=== PATIENT | male | born 1940 | race Caucasian/White ===

== ENCOUNTER → 2016-06-12 | Outpatient (CLI) | payer BC ==
[~2016-06-12] MED LIST: ATOR-22 PO; CALC-20 PO; CETI10TA10 PO; FOLI-29 PO; LATA0.5S OPB; LSN25 PO; MOME100A INH; MULTCAP7 PO; PANT40TA PO; PANT40TA2 PO; PSYL55.43 PO; WARF-280 PO; instaflex PO
--- NOTE | 2016-06-12 14:52 | DIAGNOSTIC IMAGING REPORT ---
CHEST 2 VIEWS ROUTINE HISTORY: J44.9 Chronic obstructive pulmonary disease COMPARISON: Chest 10/02/2015. FINDINGS: Bibasilar linear densities suggesting atelectasis or scarring remains stable. There is a calcified granuloma within the left upper lobe. No pleural effusions. No pneumothorax. No new focal lung consolidations. No evidence for pulmonary edema. The heart is normal in size. IMPRESSION: No significant change compared to the prior study. No acute process. Bibasilar subsegmental atelectasis persists. Electronically signed by: Ramiro Alarcon M.D. 06/12/2016 2:51 PM
== END | disposition home or self-care (01) ==
LOC: C.RAD1850 14:29
PROVIDERS: ATTEND Internal Medicine Pulmonary Disease
DX: J44.9 Chronic obstructive pulmonary disease, unspecified (principal)

== ENCOUNTER → 2016-07-08 | Outpatient (CLI) | payer BC ==
[~2016-07-08] MED LIST changes: -PANT40TA2 PO; +PRT/40 PO
[2016-07-08 11:06] LABS: INR 2.6 (0.9-1.1); PROTHROMBIN TIME (PATIENT) 28.4 SECONDS (9.0-12.0)
== END | disposition home or self-care (01) ==
LOC: C.LAB1850 10:21
PROVIDERS: ATTEND Nurse Practitioner
DX: I26.99 Other pulmonary embolism without acute cor pulmonale (principal)

== ENCOUNTER → 2016-12-02 | Outpatient (CLI) | payer BC ==
[~2016-12-02] MED LIST changes: +PANT40TA2 PO; -PRT/40 PO
== END | disposition home or self-care (01) ==
LOC: C.LAB1850 12:42
PROVIDERS: ATTEND Nurse Practitioner
DX: J44.9 Chronic obstructive pulmonary disease, unspecified (principal)

== ENCOUNTER → 2016-12-20 | Outpatient (CLI) | payer BC ==
[~2016-12-20] MED LIST changes: -PANT40TA2 PO; +PRT/40 PO
[2016-12-20 12:33] LABS: INR 2.4 (0.9-1.1); PROTHROMBIN TIME (PATIENT) 26.7 SECONDS (9.0-12.0)
[2016-12-20 12:47] LABS: CHOLESTEROL/HDL RATIO 2.1
== END | disposition home or self-care (01) ==
LOC: C.LABPVFM 08:07
PROVIDERS: ATTEND Nurse Practitioner
DX: E78.00 Pure hypercholesterolemia, unspecified (principal)

== ENCOUNTER → 2017-04-22 | Outpatient (CLI) | payer BC ==
[~2017-04-22] MED LIST changes: +PANT40TA2 PO; -PRT/40 PO
--- NOTE | 2017-04-22 10:36 | DIAGNOSTIC IMAGING REPORT ---
CHEST 2 VIEWS ROUTINE HISTORY: 77 years-old Male MUSCLE SPASM acute muscle spasms of the right chest. History of prior pulmonary embolus. COMPARISON: Chest radiograph 06/12/2016 TECHNIQUE: PA and lateral views of the chest FINDINGS: Cardiomediastinal and hilar silhouettes are within normal limits. There is no pneumothorax, pleural effusion or focal airspace consolidation. Calcified granuloma of the left upper lobe redemonstrated. There are linear subsegmental bibasilar opacities suggesting atelectasis or scarring. Bones of the chest are grossly intact. Degenerative changes involve the shoulders and spine. IMPRESSION: No acute cardiopulmonary process. The above report was generated using voice recognition software. It may contain grammatical, syntax or spelling errors. Electronically signed by: Karel Haq M.D. 04/22/2017 10:34 AM Dictated Date/Time: 04/22/2017 10:33 AM
== END | disposition home or self-care (01) ==
LOC: C.LABPVFM 10:01
PROVIDERS: ATTEND Family Medicine Adult Medicine
DX: M62.838 Other muscle spasm (principal)

== ENCOUNTER → 2017-05-03 | Outpatient (CLI) | payer BC ==
[2017-05-03 12:56] LABS: BASO % 0.3 %; BASO ABS # 0.04 K/uL (0-0.2); COMPLETE YES; HEMATOCRIT 42.8 % (42-52); IG% 0.3 %; LYMPH % 11.7 %; LYMPH ABS # 1.46 K/uL (1.2-3.4); MEAN CELL VOLUME 94.7 fL (80-100); MEAN CORPUSCULAR HEMOGLOBIN 31.6 pg (25-34); MEAN CORPUSCULAR HGB CONC 33.4 g/dl (32-36); MEAN PLATELET VOLUME 10.3 fL (7.4-10.4); MONO % 9.5 %; NEUT % 75.2 %; PLATELET COUNT 190 K/uL (130-400); RED BLOOD COUNT 4.52 M/uL (4.7-6.1); WHITE BLOOD COUNT 12.48 K/uL (4.8-10.8)
[2017-05-03 12:59] LABS: BLOOD UREA NITROGEN 20 mg/dl (7-18); BUN/CREATININE RATIO 13.2 (10-20); CALCIUM 9.1 mg/dl (8.5-10.1); CARBON DIOXIDE 28 mmol/L (21-32); CREATININE 1.48 mg/dl (0.60-1.40); GLUCOSE 86 mg/dl (70-99)
[2017-05-03 13:00] LABS: URINE APPEARANCE CLEAR (CLEAR); URINE BILIRUBIN NEG (NEG); URINE COLOR YELLOW; URINE EPITHELIAL CELL AUTO 0-5 /lpf (0-5); URINE NITRITE NEG (NEG); URINE PH 6.5 (4.5-7.5); URINE SPECIFIC GRAVITY 1.016 (1.000-1.030); UROBILINOGEN NEG (NEG)
[2017-05-03 13:03] LABS: MANUAL MICROSCOPIC REQUIRED? NO; REVIEW REQ? NO
[2017-05-03 13:10] LABS: ESTIMATED AVERAGE GLUCOSE 120 mg/dl; HA1C FLAG Normal (Normal)
[2017-05-03 13:18] LABS: CREATININE RANDOM URINE 85.7 mg/dl
[2017-05-03 13:29] LABS: RATIO 15.9 mcg/mg (0-30.0)
[2017-05-03 13:44] LABS: CHLORIDE 103 mmol/L (98-107); POTASSIUM 3.8 mmol/L (3.5-5.1); SODIUM 138 mmol/L (136-145)
== END | disposition home or self-care (01) ==
LOC: C.LABPVFM 08:50
PROVIDERS: ATTEND Internal Medicine
DX: E78.00 Pure hypercholesterolemia, unspecified (principal); C61 Malignant neoplasm of prostate

== ENCOUNTER → 2017-05-30 | Outpatient (CLI) | payer BC | END | disposition home or self-care (01) | LOC: C.LABPVFM 09:51 | PROVIDERS: ATTEND Urology | DX: C61 Malignant neoplasm of prostate (principal) ==

== ENCOUNTER → 2017-08-08 | Outpatient (CLI) | payer BC | END | disposition home or self-care (01) | LOC: C.RC 16:36 | PROVIDERS: ATTEND Nurse Practitioner | DX: J44.9 Chronic obstructive pulmonary disease, unspecified (principal); R09.02 Hypoxemia ==

== ENCOUNTER → 2017-10-27 | Outpatient (CLI) | payer BC ==
[2017-10-27 14:34] LABS: BASO % 0.5 %; BASO ABS # 0.05 K/uL (0-0.2); EOS ABS # 0.41 K/uL (0-0.5); HEMATOCRIT 41.1 % (42-52); HEMOGLOBIN 13.9 g/dL (14.0-18.0); IG# 0.03 K/uL (0.00-0.02); LYMPH % 13.5 %; LYMPH ABS # 1.38 K/uL (1.2-3.4); MEAN CELL VOLUME 89.5 fL (80-100); MEAN CORPUSCULAR HEMOGLOBIN 30.3 pg (25-34); MEAN CORPUSCULAR HGB CONC 33.8 g/dl (32-36); MEAN PLATELET VOLUME 9.7 fL (7.4-10.4); MONO % 12.2 %; MONO ABS # 1.25 K/uL (0.11-0.59); NEUT % 69.5 %; NEUT ABS # 7.12 K/uL (1.4-6.5); PLATELET COUNT 226 K/uL (130-400); RED CELL DISTRIBUTION WIDTH CV 14.9 % (11.5-14.5); RED CELL DISTRIBUTION WIDTH SD 48.6 fL (36.4-46.3); WHITE BLOOD COUNT 10.24 K/uL (4.8-10.8)
[2017-10-27 15:00] LABS: ALBUMIN 3.5 gm/dl (3.4-5.0); BLOOD UREA NITROGEN 17 mg/dl (7-18); CALCIUM 9.2 mg/dl (8.5-10.1); CARBON DIOXIDE 26 mmol/L (21-32); CREATININE 1.48 mg/dl (0.60-1.40); GLUCOSE 90 mg/dl (70-99); PHOSPHORUS 2.4 mg/dl (2.5-4.9); POTASSIUM 4.2 mmol/L (3.5-5.1); SODIUM 138 mmol/L (136-145)
[2017-10-27 16:13] LABS: CREATININE RANDOM URINE 95.7 mg/dl
== END | disposition home or self-care (01) ==
LOC: C.LAB1850 13:39
PROVIDERS: ATTEND Internal Medicine
DX: R73.09 Other abnormal glucose (principal); I10 Essential (primary) hypertension

== ENCOUNTER 2024-10-19 05:34 | Inpatient (IN) ==
--- NOTE | 2024-09-29 10:10 | PAT Medication Instructions ---
Medication Instructions Date of Service September 29, 2024 Home Medications Medication Instructions Recorded albuterol sulfate 90 mcg/actuation 2 puff inhalation Q6H PRN 07/11/22 aerosol inhaler (Ventolin HFA) shortness of breath or wheezing #54 grams nebulizer accessories #1 ea 07/18/23 nebulizers #1 ea 07/18/23 ipratropium 0.5 mg-albuterol 3 mg 3 ml inhalation TID #810 mL 07/21/23 (2.5 mg base)/3 mL nebulization soln lisinopril 2.5 mg tablet 5 mg (2 x 2.5 mg) PO BID #400 tabs 09/16/23 clotrimazole 1 % topical cream 1 applic topical TID PRN rash #45 11/12/23 grams fluticasone 250 mcg-salmeterol 50 1 inh inhalation BID #3 Inhalers 01/20/24 mcg/dose blistr powdr for inhalation (Wixela Inhub) warfarin 2.5 mg tablet (Jantoven) See Rx Instructions .Route 03/01/24 .COMPLEX #270 tabs pantoprazole 40 mg tablet,delayed 40 mg PO QAM #90 tabs 05/04/24 release montelukast 10 mg tablet 10 mg PO PM #90 tabs 05/10/24 tamsulosin 0.4 mg capsule 0.4 mg PO PM #100 caps 07/27/24 atorvastatin 20 mg tablet 20 mg PO HS #90 tabs 08/09/24 gabapentin 100 mg capsule 100 mg PO HS #90 caps 09/06/24 Medication List: calcium 315 mg (as citrate)-vitamin D3 5 mcg (200 unit) tablet (Calcium Citrate + D) 1 tab PO QAM cyanocobalamin (vitamin B-12) 1,000 mcg tablet (Vitamin B-12) 1,000 mcg PO QAM [id number] 300 mcg-K 60 mcg-lycop 600 mcg-lutein 300 mcg tablet (Centrum Silver Ultra Men's) 1 tab PO QAM acetaminophen 500 mg tablet 1,000 mg PO Q8H PRN Pain albuterol sulfate 90 mcg/actuation aerosol inhaler (Ventolin HFA) 2 puff inhalation Q6H PRN shortness of breath or wheezing artificial tears ointment 1 applic ophthalmic (eye) DAILY PRN ipratropium 0.5 mg-albuterol 3 mg (2.5 mg base)/3 mL nebulization soln 3 ml inhalation TID lisinopril 2.5 mg tablet 5 mg (2 x 2.5 mg) PO BID clotrimazole 1 % topical cream 1 applic topical TID PRN rash latanoprostene bunod 0.024 % eye drops (Vyzulta) 1 drp ophthalmic (eye) QPM levocetirizine 5 mg tablet 5 mg PO QPM turmeric root extract 500 mg capsule 1,000 mg PO QAM fluticasone 250 mcg-salmeterol 50 mcg/dose blistr powdr for inhalation (Wixela Inhub) 1 inh inhalation BID metoprolol tartrate 25 mg tablet 12.5 mg PO BID tramadol 50 mg tablet 50 mg PO Q6H PRN Pain warfarin 2.5 mg tablet (Jantoven) See Rx Instructions .Route .COMPLEX pantoprazole 40 mg tablet,delayed release 40 mg PO QAM montelukast 10 mg tablet 10 mg PO PM tamsulosin 0.4 mg capsule 0.4 mg PO PM atorvastatin 20 mg tablet 20 mg PO HS gabapentin 100 mg capsule 100 mg PO HS MEDICATION INSTRUCTIONS: Continue as directed clotrimazole 1 % topical cream 1 applic topical TID PRN rash (do not use after bathing prior to surgery) latanoprostene bunod 0.024 % eye drops (Vyzulta) 1 drp ophthalmic (eye) QPM fluticasone 250 mcg-salmeterol 50 mcg/dose blistr powdr for inhalation (Wixela Inhub) 1 inh inhalation BID albuterol sulfate 90 mcg/actuation aerosol inhaler (Ventolin HFA) 2 puff inhalation Q6H PRN shortness of breath or wheezing (use if needed; BRING TO HOSPITAL) artificial tears ointment 1 applic ophthalmic (eye) DAILY PRN ipratropium 0.5 mg-albuterol 3 mg (2.5 mg base)/3 mL nebulization soln 3 ml inhalation TID ASK your prescriber and surgeon warfarin 2.5 mg tablet (Jantoven) See Rx Instructions .Route .COMPLEX STOP taking 2 weeks before surgery turmeric root extract 500 mg capsule 1,000 mg PO QAM DO NOT take the morning of surgery calcium 315 mg (as citrate)-vitamin D3 5 mcg (200 unit) tablet (Calcium Citrate + D) 1 tab PO QAM cyanocobalamin (vitamin B-12) 1,000 mcg tablet (Vitamin B-12) 1,000 mcg PO QAM [id number]-[id number] 300 mcg-K 60 mcg-lycop 600 mcg-lutein 300 mcg tablet (Centrum Silver Ultra Men's) 1 tab PO QAM lisinopril 2.5 mg tablet 5 mg (2 x 2.5 mg) PO BID Take morning of surgery With a small sip of water, OTHERWISE NOTHING TO EAT OR DRINK AFTER MIDNIGHT: acetaminophen 500 mg tablet 1,000 mg PO Q8H PRN Pain metoprolol tartrate 25 mg tablet 12.5 mg PO BID tramadol 50 mg tablet 50 mg PO Q6H PRN Pain pantoprazole 40 mg tablet,delayed release 40 mg PO QAM Take evening before surgery montelukast 10 mg tablet 10 mg PO PM tamsulosin 0.4 mg capsule 0.4 mg PO PM atorvastatin 20 mg tablet 20 mg PO HS gabapentin 100 mg capsule 100 mg PO HS levocetirizine 5 mg tablet 5 mg PO QPM acetaminophen 500 mg tablet 1,000 mg PO Q8H PRN Pain metoprolol tartrate 25 mg tablet 12.5 mg PO BID tramadol 50 mg tablet 50 mg PO Q6H PRN Pain lisinopril 2.5 mg tablet 5 mg (2 x 2.5 mg) PO BID Other Notes If you have any questions please call us at [phone] or [phone] or [phone] or [phone]
--- NOTE | 2024-10-06 12:03 | Anesthesiology Consultation ---
Date of Service October 06, 2024 Assessment & Plan (1) Encounter for pre-operative examination: Plan - awaiting updated echocardiogram. - check coags STAT am DOS. - Case discussed in detail with Dr. Michaels including severe pulmonary hypertension on 02/2024 echocardiogram and no planned updated testing. He advised echocardiogram will need updated to determine if patient is a candidate for surgery at [facility] or if tertiary care center would be needed. Patient and daughter made aware at PAT visit, they verbalized understanding and denied questions or concerns. Cardiology office made aware the day of patient's appointment, will also send optimization form. Surgeon's office made aware. - cardiology office visit 09/29/24: "...preoperative cardiovascular examination...atrial flutter with RVR s/p cardioversion in ER 02/15/2004 failed IV adenosine and IV diltiazem (2/2 hypotension). Moderate mitral regurgitation...severe pulmonary hypertension per echo 02/16/2024...CKD. Factor V Leiden with history of PE...repair of prior TKR...has not seen PCP for preop...denies palpitations, dizziness, near syncope, syncope, denies pain and shortness of breath...plan for diagnostic overnight polysomnogram...patient decided he doesn't want to follow through with that...PASP 80 mmHg...elective low risk ortho surgery...3.9% risk of MACE based on RCRI risk scoring. Severe pulmonary hypertension likely also increases risk however, he denies associated symptoms and is compensated on exam. No further cardiac testing recommended prior to proceeding...again discussed referral to EP for consideration of atrial flutter ablation...will discuss further with his daughter but may now consider after his knee surgery..." - Outpatient joint assessment: Patient is currently scheduled for inpatient pathway. If re-evaluated and patient/surgeon requests outpatient pathway, patient is not a candidate for outpatient joint program. Chart Review Chart Review: Pending: Refer to Additional Notes / Consult section and Patient seen in Pre Admission Testing Teaching & Discussion Pre-Anesthesia Teaching/Discussion Notes: Instructed NPO after midnight before surgery, except medications with 15 cc of water. Medication instructions provided according to the PAT guidelines. History Surgery Operation Date: 10/19/24 11:25 Proposed Procedures p Left Knee Open Polyethylene Exchange - Jason Sow MD Height/Weight Height: 5 ft 10 in Weight: 93.6 kg Allergies Allergy/AdvReac Type Severity Reaction Status Date / Time Iodinated Contrast Media Allergy Intermediate Rash Verified 09/29/24 08:31 latex Allergy Mild rash Verified 09/29/24 08:31 red dye Allergy Mild RASH,PURITI Verified 09/29/24 08:31 S codeine AdvReac Intermediate DIZZINESS Verified 09/29/24 08:31 oxycodone AdvReac Intermediate NAUSEA, Verified 09/29/24 08:31 LIGHTHEADED levaquin Allergy Intermediate jittery Uncoded 09/29/24 08:31 and confused Medications Home Medications Medication Instructions Recorded Confirmed Last Taken calcium 315 mg (as 1 tab PO QAM 07/13/18 09/29/24 01/24/22 08:00 citrate)-vitamin D3 5 mcg (200 unit) tablet (Calcium Citrate + D) cyanocobalamin (vitamin B-12) 1,000 mcg PO QAM 07/13/18 09/29/24 01/24/22 08:00 1,000 mcg tablet (Vitamin B-12) ttbrwtoc-ek-piell 300 mcg-K 60 1 tab PO QAM 07/13/18 09/29/24 01/24/22 12:00 mcg-lycop 600 mcg-lutein 300 mcg tablet (Centrum Silver Ultra Men's) acetaminophen 500 mg tablet 1,000 mg PO Q8H PRN Pain 05/14/19 09/29/24 Unknown albuterol sulfate 90 mcg/actuation 2 puff inhalation Q6H PRN 07/11/22 09/29/24 Unknown aerosol inhaler (Ventolin HFA) shortness of breath or wheezing #54 grams artificial tears ointment 1 applic ophthalmic (eye) DAILY 05/30/23 09/29/24 Un known PRN . nebulizer accessories #1 ea 07/18/23 09/03/24 Unknown nebulizers #1 ea 07/18/23 09/03/24 Unknown ipratropium 0.5 mg-albuterol 3 mg 3 ml inhalation TID #810 mL 07/21/23 09/29/24 Unknown (2.5 mg base)/3 mL nebulization soln lisinopril 2.5 mg tablet 5 mg (2 x 2.5 mg) PO BID #400 tabs 09/16/23 09/29/24 Unknown clotrimazole 1 % topical cream 1 applic topical TID PRN rash #45 11/12/23 09/29/24 Unknown grams latanoprostene bunod 0.024 % eye 1 drp ophthalmic (eye) QPM 11/12/23 09/29/24 Unknown drops (Vyzulta) levocetirizine 5 mg tablet 5 mg PO QPM 11/12/23 09/29/24 Unknown turmeric root extract 500 mg 1,000 mg PO QAM 11/12/23 09/29/24 Unknown capsule fluticasone 250 mcg-salmeterol 50 1 inh inhalation BID #3 Inhalers 01/20/24 09/29/24 Unknown mcg/dose blistr powdr for inhalation (Wixela Inhub) metoprolol tartrate 25 mg tablet 12.5 mg PO BID 02/18/24 09/29/24 Unknown tramadol 50 mg tablet 50 mg PO Q6H PRN Pain 02/18/24 09/29/24 Unknown warfarin 2.5 mg tablet (Jantoven) See Rx Instructions .Route 03/01/24 09/29/24 Unknown .COMPLEX #270 tabs pantoprazole 40 mg tablet,delayed 40 mg PO QAM #90 tabs 05/04/24 09/29/24 Unknown release montelukast 10 mg tablet 10 mg PO PM #90 tabs 05/10/24 09/29/24 Unknown tamsulosin 0.4 mg capsule 0.4 mg PO PM #100 caps 07/27/24 09/29/24 Unknown atorvastatin 20 mg tablet 20 mg PO HS #90 tabs 08/09/24 09/29/24 Unknown gabapentin 100 mg capsule 100 mg PO HS #90 caps 09/06/24 09/29/24 Unknown Past Medical History Medical History (Updated 10/06/24 @ 12:19 by Teresa Fulton PA-C) Arthritis Asthma rare rescue inhaler use Atrial flutter followed by Dr. Ramirez in [place] Chronic back pain Chronic kidney disease, unspecified Chronic obstructive pulmonary disease controlled, stable per pt; last albuterol inhaler use several months ago Environmental and seasonal allergies Factor 5 Leiden mutation, heterozygous GERD (gastroesophageal reflux disease) controlled, stable per pt Glaucoma Hearing deficit History of actinic keratosis History of anesthesia reaction awareness during right TKA History of cardioversion 02/2024>[facility] in [place] History of prostate cancer 2006--sx History of pulmonary embolism (~2012) Several clots, 2012 - on Warfarin Hx of migraines Hyperlipidemia Hypertension controlled, stable per pt On anticoagulant therapy Prediabetes Pulmonary hypertension severe on 02/2024 echo Rotator cuff tear, left shoulder pain>left Seborrheic keratosis Suspected sleep apnea per cardio records, patient did not pursue sleep study Patient denies h/o stroke, seizures, heart attack, heart failure, or blood transfusions. Exercise / Class Metabolic Activity II 4-5 Yardwork/Stairs/Walk up hill (denies chest discomfort or shortness of breath with one flight of stairs) Past Family History Family History Son Family history of irritable bowel syndrome has UC Father Cancer Heart disease Hypertension Mother Hypertension Other Clotting disorder No family history of adverse response to anesthesia Denies family history of Ovarian cancer Prostate cancer Myocardial infarction Breast cancer Colorectal cancer Past Surgical History Surgical History H/O right inguinal hernia repair (01/29/22) Open Right Inguinal Hernia Repair with Mesh(Right) - Gorge Fontanez DO History of bilateral cataract extraction History of colonoscopy 2019 History of eye surgery right History of lumbar spinal fusion 05/2009 History of prostate biopsy History of tooth extraction 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 Sow History of total right knee replacement (TKR) Dr. Morelos 2017 Hx of transurethral resection of prostate Status post cryoablation prostate Past Anesthesia History No Family Hx of Anesthesia Complications and Other (awareness during left TKA with neuraxial anesthesia) History of PONV No Hx of PONV and No Hx of Motion Sickness Social History Smoking Status: Former smoker Do You Dip or Chew Tobacco: No (quit 1984) Smoking End Date: 1984 Hx Alcohol Use: No Alcohol type: wine substance use type: does not use Review of Systems Patient denies chest pain, shortness of breath, dyspnea on exertion, fever, chills, cough, wheezing, or palpitations. Physical Exam Vital Signs Vitals BP 129/74 P 60 TEMP 97.8 SP02 94% on RA RESP 17 Physical Patient resting comfortably in chair in no acute distress, alert and oriented, responding appropriately throughout visit Full cervical extension range of motion without pain TMD 3.5 finger breadths Mallampati Score 2 Dentition: edentulous, full upper and lower dentures Lungs: normal respiratory effort. Good air movement, clear throughout to auscultation, no adventitious breath sounds Cardiac: regular rate and rhythm, no murmurs noted Carotid arteries: negative bruit bilat Lab Results Anesthesia Preop Results Results Anesthesia Widget: WBC 7.33 K/ul (4.8-10.8) 10/06/24 Hgb 13.2 g/dl (14.0-18.0) L 10/06/24 Hct 38.5 % (42.0-52.0) L 10/06/24 Plt 188 K/uL (130-400) 10/06/24 Na 136 mmol/L (136-145) 10/06/24 K 4.3 mmol/L (3.5-5.1) 10/06/24 Cl 103 mmol/L (98-107) 10/06/24 CO2 29 mmol/L (21-32) 10/06/24 BUN 17 mg/dl (6-23) 10/06/24 Creat 1.15 mg/dl (0.6-1.4) 10/06/24 Glucose Level 89 mg/dl (70-99(Fasting)) 10/06/24 PT 25.6 Seconds (9.0-12.0) H 10/06/24 PTT 37 Seconds (21-31) H 10/06/24 INR 2.6 (0.9-1.1) H 10/06/24 Urine Color Yellow 10/06/24 Urine Appearance Clear (Clear) 10/06/24 Urine pH 7.5 (4.5-7.5) 10/06/24 Urine Specific [place] 1.010 (1.000-1.030) 10/06/24 Urine Protein Negative (Negative) 10/06/24 Urine Glucose (UA) Negative (Negative) 10/06/24 Urine Ketones Negative (Negative) 10/06/24 Urine Blood Negative (Negative) 10/06/24 Urine Nitrite Negative (Negative) 10/06/24 Urine Bilirubin Negative (Negative) 10/06/24 Urine Urobilinogen Negative (Negative) 10/06/24 Urine Leukocyte Esterase Negative (Negative) 10/06/24 Blood Type A Negative 10/06/24 Antibody Screen NEGATIVE 10/06/24 Testing Electrocardiogram Date: 09/29/24 Sinus bradycardia, rate 59 bpm Premature supraventricular complexes are no longer present vs 03/16/2024 EKG Chest X-Ray Date: 10/06/24 No acute cardiopulmonary findings. Stress Test Date: 10/23/20 MPHR 102% METS 7 Negative exercise stress echo and ECG for ischemia Frequent PVCs. Four beat run of NSVT in recovery EF 65% Mild cLVH No evidence of wall motion abnormalities Borderline dilated LA
--- NOTE | 2024-10-18 19:53 | History & Physical Report ---
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 Plan is to do a tibial polyethylene exchange and there is a more constrained longer post that will correct the situation. Encounter type: sequela Qualified Code(s): T84.063S - Wear of articular bearing surface of internal prosthetic left knee joint, sequela History of Present Illness Chief Complaint: Acute onset left knee pain and instability Primary Care Provider: ARNOLDO Davis 84-year-old male with acute onset of left knee pain and instability history of total knee replacement 2010. Incident occurred after kneeling down to pull weeds and standing up and his knee popped and he has had instability ever since. Patient denies headaches, sweats, fevers, chills, double vision, blurred vision, cough, sore throat, dysphagia, chest pain, sob, wheezing, n/v/d/c, numbness, tingling, fatigue, urinary symptoms, mood disorders. ROS positive for history of PE, emphysema/COPD, factor V mutation, foot numbness, abnormal bruising related to medication, osteoarthritis spine and back, acid reflux, hiatal hernia, prostate cancer, family member issue with anesthesia. Allergies Allergy/AdvReac Type Severity Reaction Status Date / Time Iodinated Contrast Media Allergy Intermediate Rash Verified 10/07/24 14:16 latex Allergy Mild rash Verified 10/07/24 14:16 red dye Allergy Mild RASH,PURITI Verified 10/07/24 14:16 S codeine AdvReac Intermediate DIZZINESS Verified 10/07/24 14:16 oxycodone AdvReac Intermediate NAUSEA, Verified 10/07/24 14:16 LIGHTHEADED levaquin Allergy Intermediate jittery Uncoded 10/07/24 14:16 and confused Home Medications Medication Instructions Recorded Confirmed Type calcium 315 mg (as 1 tab PO QAM 07/13/18 10/07/24 History citrate)-vitamin D3 5 mcg (200 unit) tablet (Calcium Citrate + D) cyanocobalamin (vitamin B-12) 1,000 mcg PO QAM 07/13/18 10/07/24 History 1,000 mcg tablet (Vitamin B-12) ljquwurl-dy-imohf 300 mcg-K 60 1 tab PO QAM 07/13/18 10/07/24 History mcg-lycop 600 mcg-lutein 300 mcg tablet (Centrum Silver Ultra Men's) acetaminophen 500 mg tablet 1,000 mg PO Q8H PRN Pain 05/14/19 10/07/24 History albuterol sulfate 90 mcg/actuation 2 puff inhalation Q6H PRN 07/11/22 10/07/24 Rx aerosol inhaler (Ventolin HFA) shortness of breath or wheezing #54 grams artificial tears ointment 1 applic ophthalmic (eye) DAILY 05/30/23 10/07/24 History PRN . nebulizer accessories #1 ea 07/18/23 10/07/24 Rx nebulizers #1 ea 07/18/23 10/07/24 Rx ipratropium 0.5 mg-albuterol 3 mg 3 ml inhalation TID #810 mL 07/21/23 10/07/24 Rx (2.5 mg base)/3 mL nebulization soln lisinopril 2.5 mg tablet 5 mg (2 x 2.5 mg) PO BID #400 tabs 09/16/23 10/07/24 Rx clotrimazole 1 % topical cream 1 applic topical TID PRN rash #45 11/12/23 10/07/24 Rx grams latanoprostene bunod 0.024 % eye 1 drp ophthalmic (eye) QPM 11/12/23 10/07/24 History drops (Vyzulta) levocetirizine 5 mg tablet 5 mg PO QPM 11/12/23 10/07/24 History turmeric root extract 500 mg 1,000 mg PO QAM 11/12/23 10/07/24 History capsule fluticasone 250 mcg-salmeterol 50 1 inh inhalation BID #3 Inhalers 01/20/24 10/07/24 Rx mcg/dose blistr powdr for inhalation (Wixela Inhub) metoprolol tartrate 25 mg tablet 12.5 mg PO BID 02/18/24 10/07/24 History tramadol 50 mg tablet 50 mg PO Q6H PRN Pain 02/18/24 10/07/24 History warfarin 2.5 mg tablet (Jantoven) See Rx Instructions .Route 03/01/24 10/07/24 Rx .COMPLEX #270 tabs pantoprazole 40 mg tablet,delayed 40 mg PO QAM #90 tabs 05/04/24 10/07/24 Rx release montelukast 10 mg tablet 10 mg PO PM #90 tabs 05/10/24 10/07/24 Rx tamsulosin 0.4 mg capsule 0.4 mg PO PM #100 caps 07/27/24 10/07/24 Rx atorvastatin 20 mg tablet 20 mg PO HS #90 tabs 08/09/24 10/07/24 Rx enoxaparin 40 mg/0.4 mL 40 mg (0.4 mL) subcut Q12H #4 mL 10/07/24 10/07/24 Rx subcutaneous syringe (Lovenox) gabapentin 100 mg capsule 200 mg (2 x 100 mg) PO HS #90 caps 10/07/24 10/07/24 Rx Past Med/Surg History Problem List (Updated 10/18/24 @ 19:49 by Jason Sow MD) 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 Encounter for pre-operative examination (Acute) Knee pain, left anterior Left shoulder pain Paroxysmal atrial flutter Callus of foot Pre-diabetes Arthritis Benign essential tremor Restless leg syndrome, controlled Exertional shortness of breath Asthma-COPD overlap syndrome Shoulder pain, right Allergic conjunctivitis and rhinitis Chronic kidney disease, unspecified (Chronic) Gastroesophageal reflux disease (Chronic 10/14/12) Hyperlipidemia (Chronic 10/14/12) Per PCP records Osteoarthritis (Chronic) 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 (Chronic) Factor 5 Leiden mutation, heterozygous On Warfarin Hypertension Per PCP records Medical History History of anesthesia reaction awareness during right TKA Pulmonary hypertension severe on 02/2024 echo Suspected sleep apnea per cardio records, patient did not pursue sleep study Environmental and seasonal allergies Arthritis Prediabetes History of prostate cancer 2006--sx Factor 5 Leiden mutation, heterozygous On anticoagulant therapy Hx of migraines Rotator cuff tear, left shoulder pain>left History of cardioversion 02/2024>[facility] in [place] Atrial flutter followed by Dr. Ramirez in [place] Hypertension controlled, stable per pt Hyperlipidemia Chronic obstructive pulmonary disease controlled, stable per pt; last albuterol inhaler use several months ago Chronic kidney disease, unspecified Seborrheic keratosis History of pulmonary embolism (~2012) Several clots, 2013 - on Warfarin History of actinic keratosis Asthma rare rescue inhaler use Chronic back pain GERD (gastroesophageal reflux disease) controlled, stable per pt Glaucoma Hearing deficit Surgical History H/O right inguinal hernia repair (01/29/22) Open Right Inguinal Hernia Repair with Mesh(Right) - Gorge Fontanez DO 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 Sow History of total right knee replacement (TKR) Dr. Morelos 2017 History of lumbar spinal fusion 05/2009 History of prostate biopsy Status post cryoablation prostate Hx of transurethral resection of prostate History of colonoscopy 2019 History of tooth extraction History of eye surgery right History of bilateral cataract extraction Family History Son Family history of irritable bowel syndrome has UC Father Cancer Heart disease Hypertension Mother Hypertension Other Clotting disorder No family history of adverse response to anesthesia Denies family history of Ovarian cancer Prostate cancer Myocardial infarction Breast cancer Colorectal cancer Social History Smoking Status: Former smoker Tobacco Type: Cigarettes Age Started Using Tobacco: 20; Age Quit Using Tobacco: 46; packs per day: 1; Smoking End Date: 1984; Second Hand Exposure: No; Do You Dip or Chew Tobacco: No (quit 1984); Hx Alcohol Use: No Hx Substance Use: No Preferred Language: Tunisian Communication Ability: Effective Visual Impairment: Limited Hearing Ability: Use of Hearing Aid Revenue Tax Specialist Required: No Beliefs That Will Affect Care: None marital status: Current Living Situation: Spouse current occupational status: retired How many Children do You have: 3 Feels Safe at Home: Yes Safety Concerns: Feels Safe At This Time Childhood Exposure to Second-Hand Smoke: Yes Diet: regular caffeine: Yes during the past year weight has: remained stable Dental Care, Regularly: Yes Physical Activity Frequency: Daily Seatbelt Use: always Sunscreen Use: Yes Do you think of yourself as: straight/heterosexual Sexual Activity: has been sexually active, but not for at least 12 months Gender Identity: Male Assistive Devices: Denture - Upper, Denture - Lower, Glasses, Hearing Aid - Bilateral and Nebulizer Review of Systems All systems reviewed & are unremarkable except as noted in HPI & below Physical Exam Constitutional: WD/WN, vitals as above Respiratory: normal respiratory effort; no respiratory distress Cardiovascular: Rate/Rhythm: regular rate and regular rhythm Musculoskeletal: Left knee with surgical scar consistent with previous knee replacement with mild swelling and trace to mild effusion with positive posterior back pad inspector the flexed position of the knee where the tibia subluxes posteriorly on the femur and this can be reproduced actively by the patient with a clunk. 0 to 90 degrees of flexion. Distal circulation sensorimotor exam intact. Skin: no rashes, warm and dry Neurologic: normal touch/pain/proprioception Psychiatric: A+Ox3, euthymic affect Results & Data Diagnostic Findings Radiographs demonstrate no loosening well aligned implants.
--- OUTSIDE RECORDS SUMMARY | 2024-10-19 05:39 | External Medical Summary | Summary of Care ---
Author Name Unknown Organization [facility] Address [address] [facility] [place] [address] Care Team Providers Care Sex Offender Treatment Professional Name Role Phone Shivani Mayo Primary Care Provide r Reason for Referral * Precert (Diagnostic Medical) (Within 10 days (routine)) - Authorized Specialty Diagnoses / Procedures Referred By Contac t Referred To Contact Cardiac Studies Diagnoses Preoperative cardiovascular examination Pulmonary hypertension (HCC) Procedures ECHO, COMPLETE (2D), TRANS-THORACIC Hiral Fang CRNP [address] [place] [address] [address] [facility] [place] [address] Phone: tel: fax: Referral ID Status Reason Start Date Expiration Date V isits Requested Visits Authorized [id number] Authorized Precert 10/14/2024 11/06/2024 [id number] Reason for Visit * Precert (Diagnostic Medical) (Within 10 days (routine)) - Authorized Specialty Diagnoses / Procedures Referred By Contac t Referred To Contact Cardiac Studies Diagnoses Preoperative cardiovascular examination Pulmonary hypertension (HCC) Procedures ECHO, COMPLETE (2D), TRANS-THORACIC Hiral Fang CRNP [address] [place] [address] [address] [facility] [place] [address] Phone: tel: fax: Referral ID Status Reason Start Date Expiration Date V isits Requested Visits Authorized [id number] Authorized Precert 10/14/2024 11/06/2024 [id number] Encounter Details Date Type Department Care Team (Latest Contact Info) Description 10/15/2024 12:44 PM EDT - 10/15/2024 11:59 PM EDT Hospital Encounter Cardiac Studies [address] [place] [phone] Discharge Disposition: Home - Self Care Allergies Active Allergy Reactions Criticality Noted Date Comments Latex Rash 02/15/2024 Morphine And Codeine 09/26/2006 nausea Red Dye #40 (Allura Red) 01/13/2023 documented as of this encounter (statuses as of 10/16/2024) Medications CALCIUM + D 600-200 MG-UNIT PO TABS 600-400 1daily Active MULTIVITAMINS PO TABS w/mineral for age 50+, 1 tab daily Active VENTOLIN HFA 108 (90 BASE) MCG/ACT IN AERS 1-2 puffs up to 4 times daily Active Ipratropium-Albuter ol 0.5-2.5 (3) MG/3ML Inhalation Solution (Duoneb) Inhale one vial (3 mL) via nebulizer 3 times a day. 900 mL 4 10:16 AM EST 07/21/19 24 Active Additional Information Patient taking differently:3 mL [id number] PRN, Shortness of Breath, Reported on 09/29/2024 Lisinopril 2.5 MG Oral Tablet (Prinivil) Take 2 tablets by mouth twice daily 400 Tablet 3 5 11:01 AM EDT 09/16/19 24 Active Turmeric 500 MG Oral Capsule Take 2 Capsules by mouth in the morning. Active Artificial Tears 0.1-0.3 % Ophthalmic Solution (Dextran 70-Hypromellose) Instill 1 Drop into eye daily as needed. Active Acetaminophen 500 MG Oral Tablet (Tylenol) Take 2 Tablets by mouth every 6 hours as needed. Active Levocetirizine Dihydrochloride 5 MG Oral Tablet Take 1 Tablet by mouth every evening. Active B-12 1000 MCG Oral Tablet Take 1 Tablet by mouth daily. Active Fluticasone-Salmete rol 250-50 MCG/ACT Inhalation Aerosol Powder Breath Activated (Advair Diskus) inhale 1 puff by mouth twice a day 180 Each 4 5 3:26 PM EDT 01/20/20 24 Active Warfarin Sodium 2.5 MG Oral Tablet (Coumadin) take 2 tablets by mouth Friday, friday, , friday and friday. Take 3 tablets on friday and friday. 270 Tablet 3 5 8:08 AM EDT 03/01/20 24 Active Latanoprostene Bunod 0.024 % Ophthalmic Solution (Vyzulta) instill one drop into both eyes every evening 10 mL 6 5 11:00 AM EDT 04/08/20 24 Active Cephalexin 500 MG Oral Capsule (Keflex) Take 1 Capsule by mouth in the morning and 1 Capsule at noon and 1 Capsule in the evening and 1 Capsule before bedtime. Active Pantoprazole Sodium 40 MG Oral Tablet Delayed Release (Protonix) Take 1 Tablet by mouth in the morning. 90 Tablet 3 5 2:40 PM EST 05/04/20 24 Active Montelukast Sodium 10 MG Oral Tablet (Singulair) take 1 tablet by mouth in the evening 90 Tablet 3 5 4:43 PM EST 05/10/20 24 Active Tamsulosin HCl 0.4 MG Oral Capsule (Flomax) Take 1 Capsule by mouth every evening. 100 Capsule 3 5 5:23 PM EST 07/27/19 25 Active Atorvastatin Calcium 20 MG Oral Tablet (Lipitor) take one tablet by mouth at bedtime 90 Tablet 3 5 6:22 PM EST 08/10/19 25 Active traMADol HCl 50 MG Oral Tablet (Ultram) Take 1 Tablet by mouth every 6 hours as needed for Pain, Severe. 15 Tablet 5 1:22 PM EST 08/12/19 25 Active Gabapentin 100 MG Oral Capsule (Neurontin) take 1 capsule (100 mg) orally at bedtime 90 Capsule 3 5 1:48 PM EDT 09/07/19 25 Active Metoprolol Tartrate 25 MG Oral Tablet (Lopressor)Indicati ons:Atrial flutter with rapid ventricular response (HCC) Take 1/2 Tablet by mouth in the morning and 1/2 Tablet before bedtime. 90 Tablet 3 5 10:52 AM EDT 09/14/19 25 Active documented as of this encounter (statuses as of 10/16/2024) Active Problems Problem Noted Date Diagnosed Date Nonrheumatic mitral valve regurgitation 02/16/20 24 Dysfunction of left rotator cuff 2024 Glaucoma 02/15/2024 Hypertension 02/15/2024 Pre-diabetes 02/15/2024 Restless leg syndrome, controlled 02/15/2024 Chronic obstructive pulmonary disease 02/15/2024 Hypertensive chronic kidney disease 02/15/2024 Benign essential tremor 02/15/2024 History of pulmonary embolus (PE) 02/15/2024 Overview (03/31/2024): historical Factor V Leiden 02/15/2024 Chronic anticoagulation 02/15/2024 Gastroesophageal reflux disease 10/14/2012 Conjunctival cysts 11/21/2011 Overview (09/08/2024): ICD-10 Update of Inactive Term Benign neoplasm of colon 06/22/2007 Overview (06/29/2007): adenomatous polyps--repeat 5 years Bladder neck obstruction 04/23/2007 History of prostate cancer 04/23/2007 Overview (03/31/2024): 10/05/2009 IMP: Prostate Cancer - MARIE Urgency of urination 04/23/2007 Impotence of organic origin 04/23/2007 documented as of this encounter (statuses as of 10/16/2024) Resolved Problems Problem Noted Date Diagnosed Date Resolved Date No history of deep venous th rombosis or pulmonary embolus 02/15/2024 02/15/2024 Atrial flutter with rapid ve ntricular response 02/15/2024 2024 documented as of this encounter (statuses as of 10/16/2024) Immunizations Name Administration Dates Next Due COVID-19 mRNA, LNP-s, No Pre serve, 2-Dose Series (Pfizer) 10/03/2021 DTP Vaccine 12/28/2013 Pneumococcal Conjugate Vacc, 13 Valent (Prevnar) 08/22/2014 Pneumococcal Polysaccharide PPV23 (Pneumovax) 07/02/2011,08/07/2005 Seasonal Influenza Virus Vac cine, Unspecified Formulation 03/14/2023,03/15/2022,04/25/2021,03/23,03/29/2019,04/09/2018,04/25/2017 ,03/29/2016,04/07/2015,04/04/2014,03/10,04/08/2012,04/09/2011, 0,04/09/2008,03/25/2007,05/18/2002,09/1999,04/17/1999 Seasonal Influenza, High Dos e, Trivalent, PF, IM (Fluzone HD) 03/29/2019 TDAP, Age 7 and older, IM (Adacel) 12/28/2013 Varicella Zoster Vaccine Dayron lt (Zostavax) 05/23/2014 documented as of this encounter Social History Tobacco Use Types Packs/Day Years Used Date Smoking Tobacco: Former Smokeless Tobacco: Former Alcohol Use Standard Drinks/Week Comments No 0 (1 standard drink = 0.6 oz pur e alcohol) Personal Safety Answer Date Recorded Do you feel unsafe or have concerns for your saf ety? No 02/15/2024 Do you have concerns for you r family's safety? (Household - for ages 0-17 years) Not on file 02/15/2024 Utilities Answer Date Recorded Do you have trouble paying y our heating, water, or electric bill? No 02/15/2024 Is your family able to pay t he heat, water, or electric bill? (Household - for ages 0-17 years) Not on file 02/15/2024 Does your family have access to good internet? (Household - for ages 0-17 years) Not on file 02/15/2024 Transportation Needs Answer Date Record ed Do you have trouble getting a ride to medical visits or work? (Adult - for ages 18 years and over) Not on file 02/15/2024 Does your family have a hard time getting a ride to doctors visits? (Household - for ages 0-17 years) Not on file 02/15/2024 Has lack of transportation k ept you from medical appointments, meetings, work, or from getting things needed for daily living? Check all that apply. No 02/15/2024 Do you (or your family) have trouble finding or paying for a ride (transportation)? (Household - for ages 0-17 years) Not on file 02/15/2024 Housing Stability Answer Date Recorded Do you currently live in a s helter or have no steady place to sleep at night? (Adult - for ages 18 years and over) Not on file 02/15/2024 Do you think you are at risk of becoming homeless? (Adult - for ages 18 years and over) Not on file 02/15/2024 Does your family worry about paying for your home or becoming homeless? (Household - for ages 0-17 years) Not on file 0 02/15/2024 Are you homeless or worried that you might be in the future? No 02/15/2024 Are you (or your family) betty eless or worried that you might be in the future? (Household - for ages 0-17 years) Not on file Food Insecurity Answer Date Recorded Do you need food for this week? No 02/15/2024 Are you able to get enough f ood for your family? (Household - for ages 0-17 years) Not on file 02/15/2024 Does your family need food t his week? (Household - for ages 0-17 years) Not on file 02/15/2024 Do you always have enough fo od for your family? (Household - for ages 0-17 years) Not on file 02/15/2024 Food Insecurity Answer Date Recorded Worried About Running Out of Food in the Last Ye ar Not on file 02/15/2024 Ran Out of Food in the Last Year Not on file 02/15/2024 Do you need food for this week? No 02/15/2024 Sex and Gender Information Value Date Recorded Sex Assigned at Male 03/10/2024 11:36 AM EDT Legal Sex Male 7:10 AM EST Gender Identity Male 03/10/2024 11:36 AM EDT Sexual Orientation Straight 03/10/2024 11 :36 AM EDT documented as of this encounter Functional Status * Are you deaf or do you have serious difficulty hearing? Answer Date of Assessment Author Yes 02/15/2024 2:41 PM EDT Trista Valentine RN * Are you blind or do you have serious difficulty seeing, even when wearing glasses? Answer Date of Assessment Author No 02/15/2024 2:41 PM EDT Trista Valentine RN * Do you have serious difficulty walking or climbing stairs? (5 years old or older) Answer Date of Assessment Author No 02/15/2024 2:41 PM EDT Trista Valentine RN * Do you have difficulty dressing or bathing? (5 years old or older) Answer Date of Assessment Author No 02/15/2024 2:41 PM EDT Trista Valentine RN * Because of a physical, mental, or emotional condition, do you have difficulty doing errands alone such as visiting a doctor’s office or shopping? (15 years old or older) Answer Date of Assessment Author No 02/15/2024 2:41 PM EDT Trista Valentine RN documented as of this encounter Mental Status * Because of a physical, mental, or emotional condition, do you have serious difficulty concentrating, remembering, or making decisions? (5 years old or older) Answer Entry Date Author No 02/15/2024 2:41 PM EDT Trista Valentine RN documented in this encounter Miscellaneous Notes * Result Encounter Note - Hiral Fang CRNP - 10/15/2024 1:00 PM EDT Please fax report to [facility] pre as requested. [employer] message sent to patient. ARNOLDO Dunham 10/15/2024 4:42 PM * Result Encounter Note - Nikky Garcia CMA - 10/15/2024 1:00 PM EDT Fax echo (10/15/2024) results to: [facility] Pre-Admission Testing Also called [facility] and left asking to call us if they did not rec' results documented in this encounter Plan of Treatment Upcoming Encounters Date Type Department Care Team (Late st Contact Info) Description 11/17/2024 10:00 AM EDT Office Visit Orthopaedics [facility] [address] [place] [address] [place] [phone] Sidra Shetty PA-C [address] [place] [address] [place] [address] 02/10/2025 1:00 PM EDT Appointment Cardiac Studies [address] [place] [phone] 02/10/2025 2:45 PM EDT Office Visit Cardiology, [address] [place] [phone] Hiral Fang CRNP [address] [place] [address] [address] [place] [phone] Health Maintenance Due Date Last Done Comments HbA1c 1948 Depression Screening 1952 Albumin/Creatinine Ratio 02/15/1958 Alpha-1 Antitrypsin 02/15/1958 Zoster Vaccines (2 of 3) 07/18/2014 05/23/2014 Colonoscopy 11/27/2014 11/28/2011, 11/08, 06/22/2007 DTap/Tdap Vaccines (3 - Td or Tdap) 12/29/2023 12/28/2013, 12/28/2013 COVID-19 Vaccine ( season) 2024 03/09/2024, 04/04/2023, 04/04/2023, Additional history exists GFR 02/15/2025 2024, 01/2024, 11/11/2006 O2 ASSESSMENT COMPLETED IN PAST YEAR FOR COPD 09/29/2025 09/29/2024 Pneumococcal Vaccine: 50+ Years Completed 08/22/2014, 07/02/2011, 08/07/2005 Influenza Vaccine (FLU shot) Completed , 03/22/2024, 03/14/2023, Additional history exists EKG Completed 09/29/2024, 01/2024, 2024, Additional history exists HPV (Gardasil) Vaccine Aged Out No lo nger eligible based on patient's age to complete this topic Hepatitis B Vaccine Aged Out No longe r eligible based on patient's age to complete this topic MENINGOCOCCAL (MENACTRA/MENVEO) Aged Out No longer eligible based on patient's age to complete this topic Meningitis B Vaccine (Bexsero/Trumemba) Aged Out No longer eligible based on patient's age to complete this topic documented as of this encounter Medical Devices Not on filedocumented as of this encounter Procedures Procedure Name Priority Date/Time Associated Diagnosis Comments ECHO, COMPLETE (2D), TRANS-THORACIC Routine 10/15/2024 2:29 PM EDT Preoperative cardiovascular examination Pulmonary hypertension (HCC) documented in this encounter Results * ECHO, COMPLETE (2D), TRANS-THORACIC (10/15/2024 2:29 PM EDT) LEFT VENTRICULAR EJECTION FRACTION 55 % [facility] 10/15/2024 1:07 PM EDT Hiral MCLAUGHLIN [facility]CH[facility]IOLOG[facility] Final Result [facility] documented in this encounter Visit Diagnoses Diagnosis Preoperative cardiovascular examination Pre-operative cardiovascular examination Pulmonary hypertension (HCC) Other chronic pulmonary heart diseases documented in this encounter Advance Directives * Full Code (Latest Code Status on File) Date Activated Date Inactivated Comments 02/15/2024 2:17 PM 2024 8:02 PM Patient elects FULL CODE STATUS. Question Answer Comments Discussion of Advance Directives occurred with: Patient Care Teams Sex Offender Treatment Professional Relationship Specialty Start Date End Date Shivani Mayo CRNP [address] [place], [place] [address] [phone] PCP - General Nurse Practitioner 03/10/24 documented as of this encounter
[2024-10-19] MEDS: VANCOMYCIN HCL 1,500 MG in SODIUM CHLORIDE 0.9% 500 ML IV SCH (05:49)
[2024-10-19] MEDS: GABAPENTIN 300 MG CAP PO SCH (05:50)
[2024-10-19] MEDS: FAMOTIDINE 20 MG TAB PO SCH (05:50)
[2024-10-19] MEDS: dexAMETHasone**PF** 10 MG/ML VIAL IV SCH (05:50)
[2024-10-19] MEDS: ACETAMINOPHEN 500 MG TAB PO SCH (05:50)
[2024-10-19] MEDS: LR 60ML/HR IV SCH (05:51)
[2024-10-19] MEDS: METOCLOPRAMIDE HCL 10 MG TABLET PO SCH (05:51)
[2024-10-19] MEDS: CeleBREX 200 MG CAP PO SCH (05:51)
[2024-10-19] MEDS: LR 500ML BOLUS, THEN 15ML/HR IV SCH (05:51)
[2024-10-19 06:20] LABS: INR 1.1 (0.9-1.1); Partial Thromboplastin Ratio 1.1; Partial Thromboplastin Time 29 Seconds (21-31); Prothrombin Time 11.5 Seconds (9.0-12.0)
[2024-10-19] MEDS ORDERED: ROPIVACAINE 0.5% 5 MG/ML 30 ML VIAL ONE (06:33)
[2024-10-19] MEDS ORDERED: BUPIVACAINE 0.5 % 5 MG/1 ML PF 10ML VIAL ONE (06:33)
[2024-10-19] MEDS ORDERED: MIDAZOLAM HCL 1 MG/ML 2ML VIAL ONE (06:47)
[2024-10-19] MEDS ORDERED: PROPOFOL IV EMULSION 10 MG/ML 20 ML VIAL IV ONE (06:47)
[2024-10-19] MEDS ORDERED: DEXAMETHASONE SOD INJ 4 MG/ML VIAL ONE (06:47)
[2024-10-19] MEDS ORDERED: ONDANSETRON INJ 2 MG/ML 2 ML VIAL ONE (06:47)
[2024-10-19] MEDS ORDERED: fentaNYL citrate PF 100 MCG/2 ML VIAL ONE ×2 (06:47→08:56)
[2024-10-19] MEDS ORDERED: ONDANSETRON INJ 2 MG/ML 2 ML VIAL IV PRN (08:06)
[2024-10-19] MEDS ORDERED: ePHEDrine sulfate 50 MG/ML AMP IV PRN ×2 (08:06→11:17)
[2024-10-19] MEDS ORDERED: ATROPINE SULFATE 0.1 MG/ML 10ML SYR IV PRN ×2 (08:06→11:17)
--- NOTE | 2024-10-19 08:06 | Anesthesiology Consultation ---
Date of Service October 19, 2024 Assessment & Plan Chart Review Chart Review: Acceptable Risk for Surgery Consults Requested none ASA ASA3 Proposed Anesthesia Anesthesia Type: General Risk / Benefits Reviewed With: PT / POA / Parent / Guardian, Accepts Plan and Informed Consent Obtained History Surgery Operation Date: 10/19/24 08:35 Proposed Procedures p Left Knee Open Polyethylene Exchange - Jason Sow MD Height/Weight Height: 5 ft 10 in Weight: 92.7 kg Allergies Allergy/AdvReac Type Severity Reaction Status Date / Time Iodinated Contrast Media Allergy Intermediate Rash Verified 10/19/24 06:02 latex Allergy Mild rash Verified 10/19/24 06:02 red dye Allergy Mild RASH,PURITI Verified 10/19/24 06:02 S codeine AdvReac Intermediate DIZZINESS Verified 10/19/24 06:02 oxycodone AdvReac Intermediate NAUSEA, Verified 10/19/24 06:02 LIGHTHEADED levaquin Allergy Intermediate jittery Uncoded 10/19/24 06:02 and confused Medications Home Medications Medication Instructions Recorded Confirmed Last Taken calcium 315 mg (as 1 tab PO QAM 07/13/18 10/19/24 10/18/24 08:00 citrate)-vitamin D3 5 mcg (200 unit) tablet (Calcium Citrate + D) cyanocobalamin (vitamin B-12) 1,000 mcg PO QAM 07/13/18 10/19/24 10/18/24 08:00 1,000 mcg tablet (Vitamin B-12) [id number] 300 mcg-K 60 1 tab PO QAM 07/13/18 10/19/24 10/18/24 12:00 mcg-lycop 600 mcg-lutein 300 mcg tablet (Centrum Silver Ultra Men's) acetaminophen 500 mg tablet 1,000 mg PO Q8H PRN Pain 05/14/19 10/19/24 10/19/24 04:30 albuterol sulfate 90 mcg/actuation 2 puff inhalation Q6H PRN 07/11/22 10/19/24 10/18/24 22:00 aerosol inhaler (Ventolin HFA) shortness of breath or wheezing #54 grams artificial tears ointment 1 applic ophthalmic (eye) DAILY 05/30/23 10/19/24 10/18/24 22:00 PRN . nebulizer accessories #1 ea 07/18/23 10/07/24 Unknown nebulizers #1 ea 07/18/23 10/07/24 Unknown ipratropium 0.5 mg-albuterol 3 mg 3 ml inhalation TID #810 mL 07/21/23 10/19/24 Unknown (2.5 mg base)/3 mL nebulization soln lisinopril 2.5 mg tablet 5 mg (2 x 2.5 mg) PO BID #400 tabs 09/16/23 10/19/24 10/18/24 22:00 clotrimazole 1 % topical cream 1 applic topical TID PRN rash #45 11/12/2310/07 Unknown grams latanoprostene bunod 0.024 % eye 1 drp ophthalmic (eye) QPM 11/12/23 10/19/24 10/18/24 22:00 drops (Vyzulta) levocetirizine 5 mg tablet 5 mg PO QPM 11/12/23 10/19/24 10/18/24 18:00 turmeric root extract 500 mg 1,000 mg PO QAM 11/12/23 10/19/24 Unknown capsule fluticasone 250 mcg-salmeterol 50 1 inh inhalation BID #3 Inhalers 01/20/24 10/19/24 Unknown mcg/dose blistr powdr for inhalation (Chenela Inhub) metoprolol tartrate 25 mg tablet 12.5 mg PO BID 02/18/24 10/19/24 10/19/24 04:30 tramadol 50 mg tablet 50 mg PO Q6H PRN Pain 02/18/24 10/19/24 10/18/24 22:00 warfarin 2.5 mg tablet (Jantoven) See Rx Instructions .Route 03/01/24 10/19/24 10/13/24 22:00 .COMPLEX #270 tabs pantoprazole 40 mg tablet,delayed 40 mg PO QAM #90 tabs 05/04/24 10/19/24 10/19/24 04:30 release montelukast 10 mg tablet 10 mg PO PM #90 tabs 05/10/24 10/19/24 10/18/24 18:00 tamsulosin 0.4 mg capsule 0.4 mg PO PM #100 caps 07/27/24 10/19/24 10/18/24 18:00 atorvastatin 20 mg tablet 20 mg PO HS #90 tabs 08/09/24 10/19/24 10/18/24 22:00 enoxaparin 40 mg/0.4 mL 40 mg (0.4 mL) subcut Q12H #4 mL 10/07/24 10/07/24 10/18/24 20:00 subcutaneous syringe (Lovenox) gabapentin 100 mg capsule 200 mg (2 x 100 mg) PO HS #90 caps 10/07/24 10/07/24 10/18/24 22:00 Active Medications Generic Name Dose Route Start Last Admin Trade Name Freq PRN Reason Stop Dose Admin Acetaminophen 1,000 mg 10/19/24 06:00 10/19/24 05:50 Acetaminophen 500 Mg Tab PO 10/19/24 18:00 1,000 mg PREOP DONTAE Administration Celecoxib 200 mg 10/19/24 06:00 10/19/24 05:51 Celebrex 200 Mg Cap PO 10/19/24 18:00 200 mg PREOP DONTAE Administration Dexamethasone Sodium Phosphate 10 mg 10/19/24 06:00 10/19/24 05:50 DexamethasonePf 10 Mg/Ml Vial IV 10/19/24 18:00 10 mg PREOP DONTAE Administration Famotidine 20 mg 10/19/24 06:00 10/19/24 05:50 Famotidine 20 Mg Tab PO 10/19/24 18:00 20 mg PREOP DONTAE Administration Gabapentin 300 mg 10/19/24 06:00 10/19/24 05:50 Gabapentin 300 Mg Cap PO 10/19/24 18:00 300 mg PREOP DONTAE Administration Vancomycin HCl 1,500 mg/ 530 mls @ 200 mls/hr 10/19/24 06:00 10/19/24 05:49 Sodium Chloride IV 10/20/24 05:59 200 mls/hr PREOP DONTAE Administration Lactated Ringer's 1,000 mls @ 60 mls/hr 10/19/24 06:00 10/19/24 05:51 Lr IV 10/19/24 22:39 Not Given .[id number] DONTAE Lactated Ringer's 1,000 mls @ 15 mls/hr 10/19/24 06:00 10/19/24 05:51 Lr IV 10/19/24 18:00 15 mls/hr .Q24H DONTAE Administration Metoclopramide HCl 10 mg 10/19/24 06:00 10/19/24 05:51 Metoclopramide Hcl 10 Mg Tablet PO 10/19/24 18:00 10 mg PREOP DONTAE Administration NPO Date Last Intake of Fluids: 10/18/24 Time Last Intake of Fluids: 22:00 Date Last Intake of Solids: 10/18/24 Time Last Intake of Solids: 18:30 Past Medical History Medical History History of anesthesia reaction awareness during right TKA Pulmonary hypertension severe on 02/2024 echo Suspected sleep apnea per cardio records, patient did not pursue sleep study Environmental and seasonal allergies Arthritis Prediabetes History of prostate cancer 2006--sx Factor 5 Leiden mutation, heterozygous On anticoagulant therapy Hx of migraines Rotator cuff tear, left shoulder pain>left History of cardioversion 02/2024>[facility] in [place] Atrial flutter followed by Dr. Ramirez in [place] Hypertension controlled, stable per pt Hyperlipidemia Chronic obstructive pulmonary disease controlled, stable per pt; last albuterol inhaler use several months ago Chronic kidney disease, unspecified Seborrheic keratosis History of pulmonary embolism (~2012) Several clots, 2013 - on Warfarin History of actinic keratosis Asthma rare rescue inhaler use Chronic back pain GERD (gastroesophageal reflux disease) controlled, stable per pt Glaucoma Hearing deficit Exercise / Class Metabolic Activity III < 4 Walking/Shop/Light housework Past Family History Family History Son Family history of irritable bowel syndrome has UC Father Cancer Heart disease Hypertension Mother Hypertension Other Clotting disorder No family history of adverse response to anesthesia Denies family history of Ovarian cancer Prostate cancer Myocardial infarction Breast cancer Colorectal cancer Past Surgical History Surgical History H/O right inguinal hernia repair (01/29/22) Open Right Inguinal Hernia Repair with Mesh(Right) - Gorge Fontanez DO 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 Sow History of total right knee replacement (TKR) Dr. Morelos 2017 History of lumbar spinal fusion 05/2009 History of prostate biopsy Status post cryoablation prostate Hx of transurethral resection of prostate History of colonoscopy 2019 History of tooth extraction History of eye surgery right History of bilateral cataract extraction Past Anesthesia History No Hx of Anesthesia Complications and No Family Hx of Anesthesia Complications History of PONV No Hx of PONV and No Hx of Motion Sickness Social History Smoking Status: Former smoker Do You Dip or Chew Tobacco: No (quit 1984) Smoking End Date: 1984 Hx Alcohol Use: No Alcohol type: wine alcohol intake frequency: 0-2 drinks per day Hx Substance Use: No substance use type: does not use Physical Exam Vital Signs Last Vital Signs Temp 37 C 10/19/24 05:55 Pulse 57 L 10/19/24 05:55 Resp 20 10/19/24 05:55 BP 150/83 H 10/19/24 05:55 Pulse Ox 95 10/19/24 05:55 O2 Del Method Room Air 10/19/24 05:55 Constitutional no acute distress ENMT Mouth: + dentures; no TMJ abnormality Mallampati Class: II Neck normal visual inspection Respiratory normal respiratory effort and + respiratory distress Auscultation: lungs clear to auscultation bilaterally Cardiovascular Rate/Rhythm: regular rate and regular rhythm Neurologic moves all extremities Psychiatric Orientation: alert and oriented x 3 Testing Laboratory Results PT 11.5 Seconds (9.0-12.0) 10/19/24 05:37 INR 1.1 (0.9-1.1) 10/19/24 05:37 APTT 29 Seconds (21-31) 10/19/24 05:37 Electrocardiogram Date: 09/29/24 Sinus bradycardia, rate 59 bpm Premature supraventricular complexes are no longer present vs 03/16/2024 EKG Chest X-Ray Date: 10/06/24 No acute cardiopulmonary findings. Echocardiogram Date: 10/15/24 EF: 55 LV Function: normal Valvular Disease: + no significant valvular disease mild mr/tr, PASP 40 mmHg Stress Test Date: 10/23/20 MPHR 102% METS 7 Negative exercise stress echo and ECG for ischemia Frequent PVCs. Four beat run of NSVT in recovery EF 65% Mild cLVH No evidence of wall motion abnormalities Borderline dilated LA
--- NOTE | 2024-10-19 08:13 | History & Physical Bridge Note ---
Date of Service October 19, 2024 History & Physical Bridge Note I have examined the patient, reviewed the History & Physical and in the interval since the performance of the History & Physical I have noted the following changes of clinical significance: no changes noted
--- NOTE | 2024-10-19 11:06 | Operative Report ---
Post Operative Report Pre & Post Diagnosis Operation Date: 10/19/24 08:35 Pre-Op Diagnosis: Left Knee Instability, fracture of polyethylene component, Status Post Total knee arthroplasty Post-Op Diagnosis: Left Knee Instability, fracture and polyethylene wear of the tibial polyethylene component, hemorrhagic synovitis, Status Post Total knee arthroplasty I identified the patient and participated in the time-out.: Yes Procedure Operation Date: 10/19/24 08:35 Actual Procedures Left knee revision of polyethylene tibial insert component of total knee replacement with electrocautery synovectomy.- Jason Sow MD Surgeon Jason Sow MD Neon Glass Blower Daryl YOU Estimated Blood Loss 5 Findings Consistent with Post-Op Diagnosis Specimens Synovium and tibial polyethylene Drains 2 Hemovac Anesthesia Type General Regional Complications none Disposition Disposition: Recovery Room Indications 84-year-old male who was recently kneeling down and got back up and felt his knee pop and has had instability after that. History of knee replacement 2010. Clinically has unstable knee with posterior instability consistent with fracture of the polyethylene post of a posterior stabilized total knee replacement Description of Procedure Patient was placed supine on the operating room table under general anesthetic. A pneumatic tourniquet was placed by the left upper thigh. Left knee exam demonstrated moderate effusion and posterior instability consistent with fractured polyethylene post. Had some mild varus valgus laxity as well. Left lower extremity was prepped and draped with ChloraPrep. Leg was elevated exsanguinated with an Esmarch bandage and pneumatic tourniquet was raised to 300 mmHg. His previous scar was used for anterior incision. Skin incised sharply and subcutaneous flaps were elevated. Quadriceps tendon retinacular repair was all healed and normal. Incision was made through medial retinaculum extending up into the mid quadriceps tendon down medial to the tibial tubercle. The effusion was evacuated. There was no signs of infection but there was signs of hemosiderin deposits throughout the synovium throughout the knee with a brown discoloration of all of the synovial tissue. This is consistent with some chronic hemorrhagic synovitis. The tip of the polyethylene post was in the sup rapatellar pouch and was removed. The polyethylene was clearly fractured and the end of the fractured area was smoothed down as though this was more of a chronic condition that had occurred prior to the recent incident. The patella had some wear of the central patella with some mild flattening but it was smooth and otherwise in good condition and not loose. There is no loosening of any of the metallic components. Electrocautery synovectomy was performed first removing the thickened scarred synovium around the medial gutter then the suprapatellar pouch region on the lateral gutter and then the scarred fat pad retro to the patella tendon area. I was able to place retractors and remove the tibial polyethylene at this time. Then we were able to remove some of the posterior areas of inflamed synovium around the condyles of the femur. The knee was copiously irrigated and then we used the aqua mantis to coagulate areas in the gutters and suprapatellar pouch to help with postop hemostasis post synovectomy. Trial reduction was performed and a tibial polyethylene left 13 mm thick journey 1 [employer] sized for a 7/8 implant was trialed. This had the best fit and there was complete stability through full range of motion. The trial was removed and after further irrigation the final implant was placed which was the [employer] journey left 13 mm thick tibial polyethylene for a 7/8 implant. The poly was inserted with the insertion device and it was stable fixation and the knee was stable through full range of motion. After further irrigation 2 Hemovac drains were brought out laterally and then the quadriceps tendon and medial retinaculum were closed with interrupted #2 FiberWire sutures around the distal quad tendon and medial retinaculum and additionally at the ap ex of the quad split superiorly and another #2 FiberWire at the level of the tibial polyethylene and then a 0 running locking STRATAFIX suture was placed from the superior quad split down to the inferior pole of the patella followed by [id number] #2 Vicryl sutures of the retinaculum below that level. Knee was taken through full range of motion and the repair was secure with multiple knee range of motion. The subcutaneous tissue was then closed with interrupted 2-0 Vicryl and the skin was closed surgical aide and a Silverlon dressing was applied. The patient tolerated the procedure well without complication. Daryl YOU was made for travel assistant and assisted in retraction wound closure and postoperative care. I attest to the content of the Intraoperative Record and any orders documented therein. Any exceptions are noted below.
[2024-10-19] MEDS: fentaNYL citrate PF 100 MCG/2 ML VIAL IV PRN (11:08)
--- NOTE | 2024-10-19 11:19 | Anesthesiology Progress Note ---
Date of Service October 19, 2024 Anesthesia Post Procedure Vital Signs Vital Signs: Temp Pulse Resp BP Pulse Ox O2 Del Method 10/19/24 05:55 37 C 57 L 20 150/83 H 95 Room Air Transfer of Care Handoff Completed per policy Notes Mental Status: alert / awake / arousable Patient Amnestic to Procedure: Yes Nausea / Vomiting: adequately controlled Pain: adequately controlled Airway Patency, RR, SpO2: stable & adequate BP & HR: stable & adequate Hydration State: stable & adequate Anesthetic Complications: no major complications apparent and Pt Satisfied with anesthetic care
[2024-10-19] MEDS: HYDROmorphone INJ 2 MG/ML SYR/VIAL IV PRN (11:28)
--- NOTE | 2024-10-19 11:42 | XRay Report ---
XR knee LT 1 or 2V routine CLINICAL HISTORY: Surgical Post Op COMPARISON: 09/11/2024 FINDINGS: Left knee prosthesis shows no hardware complication. There is expected soft tissue gas. Po stoperative drain is present. Skin aide are present. IMPRESSION: Unremarkable postoperative exam. ACT 112: Negative or not required by law. Electronically signed by: Declan Larsen M.D. 10/19/2024 11:41 AM
[2024-10-19] MEDS: ACETAMINOPHEN 1,000 MG/100 ML VIAL IV STA (11:54)
[2024-10-19] MEDS ORDERED: ALBUTEROL HFA 8 GM INHALER INH PRN (13:04)
[2024-10-19] MEDS ORDERED: CLOTRIMAZOLE 1% CR 15 GM TUBE TOP PRN (13:04)
[2024-10-19] MEDS ORDERED: ALUMINUM/MAGNESIUM SUSP 30 ML UDC PO PRN (13:04)
[2024-10-19] MEDS ORDERED: KETOROLAC TROMETHAMINE 15 MG/ML VIAL IV PRN (13:04)
[2024-10-19] MEDS ORDERED: diphenhydrAMINE Capsule 25 MG CAP PO PRN (13:04)
[2024-10-19] MEDS ORDERED: METOCLOPRAMIDE HCL INJ 5 MG/ML 2 ML VIAL IV PRN (13:04)
[2024-10-19] MEDS ORDERED: MAGNESIUM HYDROXIDE SUSP 30 ML UDC PO PRN (13:04)
[2024-10-19] MEDS ORDERED: NALOXONE HCL 0.4 MG/1 ML VIAL/CARP IV PRN (13:04)
[2024-10-19] MEDS ORDERED: bisacodyL 10 MG SUPP PR PRN (13:04)
[2024-10-19] MEDS ORDERED: ARTIFICIAL TEARS OP OINT 3.5 GM TUBE OP PRN (13:19)
[2024-10-19] MEDS: ALBUT/IPRATROP 3MG/0.5MG NEB 3 ML VIAL INH SCH (13:28)
[2024-10-19] MEDS: ONDANSETRON INJ 2 MG/ML 2 ML VIAL IV PRN (13:52)
[2024-10-19] MEDS: HYDROmorphone INJ 0.5 MG/0.5 ML SYR IV PRN (14:12)
--- NOTE | 2024-10-19 14:13 | Hospitalist Consultation ---
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 Sow. #Polyethylene wear of left knee joint prothesis s/p left knee revision of polyethylene tibial insert component of total knee replacement w/ electrocautery synovectomy on 10/[address] Sow Pain management, Bowel regimen, DVT prophylaxis, PT/OT consults per primary team. #Atrial flutter/HTN follows w/ cardiology in [facility]; most recent office visit 09/29/2024 Recent Echo 10/15 --> EF 55-59%. Mild mitral regurg. Mild tricuspid regurg. Continue Lisinopril, Metoprolol tartrate #Factor V Leiden follows w/ PCP for INR checks, presume goal INR to be 2-3 INR 10/19 -> 1.1 Resume home warfarin dosing 10/19 --> 5mg on hFSa; 7.5mg on Daily INR checks while inpatient until resume therapeutic level. SCD's; encourage ambulation when able. #COPD/Asthma Overlap Follows w/ [facility], last seen 01/2024 - follows yearly Continue Home inhalers Continue Montelukast and levocetirizine Breathing treatments prn #HLD - statin #Neuropathy - gabapentin #GERD - PPI #hx Prostate CA/BPH - Flomax DVT prophylaxis: warfarin, SCD's Code: full Case discussed w/ Dr. Walker at time of consultation Updated at bedside 10/19 Thank you for this consultation, we will continue to follow along during Constantino's hospital stay. Supervising Physician Co-Signing Physician Notes Attending Attestation & Consult Note: Pt seen/examined, chart reviewed, consult care plan d/w KENYATTA Rodriguez. I agree w/ the thomas components of her consultation documentation. 84yo male with history of paroxysmal atrial flutter s/p cardioversion 2023, hypertension, COPD/asthma overlap, Factor V Leiden mutation with PE in 2012, prostate cancer, pulmonary HTN, and HTN who presented to the hospital on 10/19 for elective left knee surgery with Dr. Sow. Specifically he underwent - Left knee revision of polyethylene tibial insert component of total knee replacement with electrocautery synovectomy EBL was minimal. I saw Mr Gutierrez on the med/surg floor several hours post-op. He was sitting in the chair and was resting comfortably with an ice pack in place on the left knee. Since surgery he has had no dyspnea, chest pain, or abd pain. Was able to eat earlier in the day. He reports that he performed a lovenox bridge leading up to this admission, and was instructed by his PCP to do a lovenox bridge upon discharge. He states he was asked to take lovenox BID at home. He already has the lovenox at his house. Of note - earlier in the day he had received an albuterol treatment. PMH/PSH/allergies/meds/sochx - reviewed vitals - VSS, o2 sats wnl gen - sitting in chair, NAD, pleasant neck - no JVD sitting upright at 90 degrees mouth - MMM heart - tachycardic (rate about 110), s1 s2, 2/6 systolic murmur LSB lungs - CTA b/l abd - soft NT ND BS+ ext - <1+ edema b/l, worse on left; drain in place L knee; ice pack in place; dressings in place L knee psych - a/o x 3 A/P: 1. s/p left knee surgery today to revise previous hardware that was fractured - by Dr Sow 2. tachycardia - likely sinus tach, but check EKG to r/o a.flutter, etc 3. COPD 4. pulm HTN 5. h/o PE, h/o a.flutter, factor 5 Leiden mutation - patient should bridge with lovenox upon discharge home; coumadin has been resumed this evening but will take several days to reach therapeutic range of 2-3 will need to clarify tomorrow what his lovenox dosing should be - can consult with anticoagulation pharmacy for such other plans per Ms Jennifer Walker MD History of Present Illness Reason for Consultation: post-op medical management Requesting Physician: Jason Sow MD Attending Physician: Jason Sow MD History of Present Illness This is an 84 year old gentleman with past medical history of Atrial flutter, hypertension, COPD/asthma overlap, Factor V Leiden, prostate cancer who presented to the hospital on 10/19 for an elective left knee operation with Dr. Sow. The patient was seen and examined with his this afternoon. Constantino complained of nausea and left knee pain at time of my encounter. He reports that he was waiting for the pharmacy to verify his medications prior to receiving an anti- emetic & pain medication. He recently saw his oil treater at [facility] in [place]. He has a history of atrial flutter that was cardioverted in 2023. His most recent echo was on 10/15 that showed an EF of 55-59% and mild mitral regurgitation/mild tricuspid regurgitation. He is compliant with all of his medications. He had a breathing treatment prior to my arrival today and denied shortness of breath. He does not wear oxygen at home. He has a history of a PE from Factor V Leiden in 2012 but has not had any issues since. He is compliant with his Warfarin dosing at home and gets monthly INR checks. He denied any chest pain, lower extremity swelling, abdominal pain, urinary issues. Allergies Allergy/AdvReac Type Severity Reaction Status Date / Time Iodinated Contrast Media Allergy Intermediate Rash Verified 10/19/24 06:02 latex Allergy Mild rash Verified 10/19/24 06:02 red dye Allergy Mild RASH,PURITI Verified 10/19/24 06:02 S codeine AdvReac Intermediate DIZZINESS Verified 10/19/24 06:02 oxycodone AdvReac Intermediate NAUSEA, Verified 10/19/24 06:02 LIGHTHEADED levaquin Allergy Intermediate jittery Uncoded 10/19/24 06:02 and confused Home Medications Medication Instructions Recorded Confirmed Type calcium 315 mg (as 1 tab PO QAM 07/13/18 10/19/24 History citrate)-vitamin D3 5 mcg (200 unit) tablet (Calcium Citrate + D) cyanocobalamin (vitamin B-12) 1,000 mcg PO QAM 07/13/18 10/19/24 History 1,000 mcg tablet (Vitamin B-12) lsyhifoj-of-uktnf 300 mcg-K 60 1 tab PO QAM 07/13/18 10/19/24 History mcg-lycop 600 mcg-lutein 300 mcg tablet (Centrum Silver Ultra Men's) albuterol sulfate 90 mcg/actuation 2 puff inhalation Q6H PRN 07/11/22 10/19/24 Rx aerosol inhaler (Ventolin HFA) shortness of breath or wheezing #54 grams artificial tears ointment 1 applic ophthalmic (eye) DAILY 05/30/23 10/19/24 History PRN . nebulizer accessories #1 ea 07/18/23 10/07/24 Rx nebulizers #1 ea 07/18/23 10/07/24 Rx ipratropium 0.5 mg-albuterol 3 mg 3 ml inhalation TID #810 mL 07/21/23 10/19/24 Rx (2.5 mg base)/3 mL nebulization soln lisinopril 2.5 mg tablet 5 mg (2 x 2.5 mg) PO BID #400 tabs 09/16/23 10/19/24 Rx clotrimazole 1 % topical cream 1 applic topical TID PRN rash #45 11/12/23 10/19/24 Rx grams latanoprostene bunod 0.024 % eye 1 drp ophthalmic (eye) QPM 11/12/23 10/19/24 History drops (Vyzulta) levocetirizine 5 mg tablet 5 mg PO QPM 11/12/23 10/19/24 History turmeric root extract 500 mg 1,000 mg PO QAM 11/12/23 10/19/24 History capsule fluticasone 250 mcg-salmeterol 50 1 inh inhalation BID #3 Inhalers 01/20/24 10/19/24 Rx mcg/dose blistr powdr for inhalation (Wixela Inhub) metoprolol tartrate 25 mg tablet 12.5 mg PO BID 02/18/24 10/19/24 History warfarin 2.5 mg tablet (Jantoven) See Rx Instructions .Route 03/01/24 10/19/24 Rx .COMPLEX #270 tabs pantoprazole 40 mg tablet,delayed 40 mg PO QAM #90 tabs 05/04/24 10/19/24 Rx release montelukast 10 mg tablet 10 mg PO PM #90 tabs 05/10/24 10/19/24 Rx tamsulosin 0.4 mg capsule 0.4 mg PO PM #100 caps 07/27/24 10/19/24 Rx atorvastatin 20 mg tablet 20 mg PO HS #90 tabs 08/09/24 10/19/24 Rx gabapentin 100 mg capsule 200 mg (2 x 100 mg) PO HS #90 caps 10/07/24 10/07/24 Rx cefadroxil 500 mg capsule 500 mg PO Q12H 14 days #28 caps 10/19/24 Rx hydrocodone 5 mg-acetaminophen 325 1 tab PO Q4H PRN pain #20 tabs 10/19/24 Rx mg tablet Patient History Medical History History of anesthesia reaction awareness during right TKA Pulmonary hypertension severe on 02/2024 echo Suspected sleep apnea per cardio records, patient did not pursue sleep study Environmental and seasonal allergies Arthritis Prediabetes History of prostate cancer 2006--sx Factor 5 Leiden mutation, heterozygous On anticoagulant therapy Hx of migraines Rotator cuff tear, left shoulder pain>left History of cardioversion 02/2024>[facility] in [place] Atrial flutter followed by Dr. Ramirez in [place] Hypertension controlled, stable per pt Hyperlipidemia Chronic obstructive pulmonary disease controlled, stable per pt; last albuterol inhaler use several months ago Chronic kidney disease, unspecified Seborrheic keratosis History of pulmonary embolism (~2012) Several clots, 2012 - on Warfarin History of actinic keratosis Asthma rare rescue inhaler use Chronic back pain GERD (gastroesophageal reflux disease) controlled, stable per pt Glaucoma Hearing deficit Surgical History H/O right inguinal hernia repair (01/29/22) Open Right Inguinal Hernia Repair with Mesh(Right) - Gorge Fontanez DO 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 Sow History of total right knee replacement (TKR) Dr. Morelos 2017 History of lumbar spinal fusion 05/2009 History of prostate biopsy Status post cryoablation prostate Hx of transurethral resection of prostate History of colonoscopy 2019 History of tooth extraction History of eye surgery right History of bilateral cataract extraction Family History Son Family history of irritable bowel syndrome has UC Father Cancer Heart disease Hypertension Mother Hypertension Other Clotting disorder No family history of adverse response to anesthesia Denies family history of Ovarian cancer Prostate cancer Myocardial infarction Breast cancer Colorectal cancer Social History Smoking Status: Former smoker Tobacco Type: Cigarettes Age Started Using Tobacco: 20; Age Quit Using Tobacco: 46; packs per day: 1; Smoking End Date: 1984; Second Hand Exposure: No; Do You Dip or Chew Tobacco: No; Hx Alcohol Use: Yes Alcohol type: wine Alcohol Intake Frequency: Monthly or Less Hx Substance Use: No Preferred Language: Tamazight Communication Ability: Effective Visual Impairment: Limited Hearing Ability: Use of Hearing Aid Humane Agent Required: No Beliefs That Will Affect Care: None marital status: Current Living Situation: Spouse current occupational status: retired How many Children do You have: 3 Feels Safe at Home: Yes Safety Concerns: Feels Safe At This Time Childhood Exposure to Second-Hand Smoke: Yes Diet: regular caffeine: Yes during the past year weight has: remained stable Dental Care, Regularly: Yes Physical Activity Frequency: Daily Seatbelt Use: always Sunscreen Use: Yes Do you think of yourself as: straight/heterosexual Sexual Activity: has been sexually active, but not for at least 12 months Gender Identity: Male Assistive Devices: Glasses, Hospital Bed and Walker Physical Exam Physical Exam: General: no acute distress; non-toxic appearing; well-nourished; cooperative HEENT: normocephalic, atraumatic; no scleral icterus; PERRLA w/ EOMs intact; vision and hearing grossly intact Skin: warm, dry without signs of tenting; no cyanosis; no rashes, bruising, lesions, or erythema noted CV: RRR; S1/S2 normal; no murmurs/rubs/gallops Lungs: no acute respiratory distress; symmetrical chest wall expansion; clear breath sounds across all lung nava w/o adventitious sounds; no wheezing ABD: Soft, NTP; BS present; no rebound/guarding; no distention MSK: no tics or fasciculations; no edema noted in the LEs b/l, nonerythematous Neuro: A&Ox3; normal mood and affect; fluent speech; no focal deficits Results & Data Results & Data Vital Signs (Past 12 Hours) Vital Signs Temp Pulse Pulse Pulse Resp BP BP 05/13/25 13:45 36.4 C L 79 16 163/76 H 10/19/24 13:28 68 16 10/19/24 13:15 36.4 C L 68 16 164/75 H 10/19/24 12:20 76 19 154/80 H 10/19/24 12:05 67 13 145/78 H 10/19/24 11:55 36.4 C L 70 15 149/79 H 10/19/24 11:45 73 19 155/80 H 10/19/24 11:35 61 12 155/86 H 10/19/24 11:25 64 21 147/79 H 10/19/24 11:15 61 17 151/75 H 10/19/24 11:05 61 16 139/89 10/19/24 10:59 36 C L 65 17 128/72 10/19/24 05:55 37 C 57 L 20 150/83 H Pulse Ox O2 Del Method O2 Flow Rate 10/19/24 13:45 95 Room Air 10/19/24 13:28 90 Room Air 10/19/24 13:15 93 Room Air 10/19/24 12:20 99 Nasal Cannula 2 10/19/24 12:05 98 Nasal Cannula 2 10/19/24 11:55 96 Nasal Cannula 2 10/19/24 11:45 93 Room Air 10/19/24 11:35 98 Oxymask 2 10/19/24 11:25 97 Oxymask 2 10/19/24 11:15 97 Oxymask 2 10/19/24 11:05 95 Oxymask 5 10/19/24 10:59 93 Oxymask 5 10/19/24 05:55 95 Room Air PG Care Time/CCT Total # of Minutes Spent Total Time Spent with Patient: Total time spent is greater than 50% in coordination of care (as documented) at patient's floor/unit and/or counseling patient: Coding Level of Care Code 24452 IN/OBS CONSULT LVL 4,60M Diagnoses 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
[2024-10-19] MEDS: WARFARIN SOD 5 MG TAB PO SCH (16:30)
[2024-10-19] MEDS: SODIUM CHLORIDE 0.9% 1,000 ML IV SCH (16:55)
[2024-10-19] MEDS: ROPIVACAINE 0.5% HCL/PF 246 MG, Ketorolac (*for OR use only*) 30 MG in SODIUM CHLORIDE ... INFIL SCH (17:26)
[2024-10-19] MEDS: ceFAZolin 2000MG 2,000 MG/15 ML SYR IV SCH ×2 (17:26→17:35)
[2024-10-19] MEDS: TRANEXAMIC ACID 1,000 MG **IV Intra-op IV SCH (17:27)
[2024-10-19] MEDS: TRANEXAMIC ACID 1,000 MG **IV Pre-op IV SCH (17:27)
[2024-10-19] MEDS: TRANEXAMIC ACID / 0.7% NACL 1,000 MG/100 ML BAG IV SCH (17:36)
[2024-10-19] MEDS: HYDROCODONE/ACETAMOPHEN 5/325MG TAB PO PRN (21:20)
[2024-10-19] MEDS: MONTELUKAST SODIUM 10 MG TABLET PO SCH (21:21)
[2024-10-19] MEDS: ATORVASTATIN 20 MG TAB PO SCH (21:21)
[2024-10-19] MEDS: TAMSULOSIN HCL 0.4 MG CAP PO SCH (21:21)
[2024-10-19] MEDS: lisinopril 5 MG TAB PO SCH (21:21)
[2024-10-19] MEDS: CETIRIZINE HCL 10 MG TABLET PO SCH (21:21)
[2024-10-19] MEDS: METOPROLOL TARTRATE 25 MG TAB PO SCH (21:21)
[2024-10-19] MEDS: SENNA 8.6 MG TAB PO SCH (21:21)
[2024-10-19] MEDS: DOCUSATE SODIUM 100 MG CAP PO SCH (21:21)
[2024-10-20 03:14] VITALS: TEMP 98.2; O2SAT 94
[2024-10-20 06:15] LABS: Hematocrit (blood only) 35.3 % (42.0-52.0); Hemoglobin 11.9 g/dl (14.0-18.0); Mean Corpuscular Hemoglobin 31.8 pg (25.0-34.0); Mean Corpuscular Hgb Conc 33.7 g/dL (32.0-36.0); Mean Corpuscular Volume 94.4 fL (80.0-100.0); Mean Platelet Volume 10.3 fL (9.4-12.4); Platelet Count 157 K/uL (130-400); RDW Coefficient of Variation 14.7 % (11.5-14.5); RDW Standard Deviation 51.2 fL (36.4-46.3); Red Blood Count 3.74 M/uL (4.70-6.10); White Blood Count 14.52 K/ul (4.8-10.8)
[2024-10-20 06:36] LABS: BUN Creatinine Ratio 17.6 (10-20); Calcium 8.6 mg/dl (8.6-10.3); Creatinine Clr Calc Pharmacy 52.9 ml/min; Potassium 4.6 mmol/L (3.5-5.1)
[2024-10-20 06:43] LABS: INR 1.1 (0.9-1.1); Prothrombin Time 11.8 Seconds (9.0-12.0)
[2024-10-20 07:48] VITALS: BP 130/58; PULSE 64; RESP 12
[2024-10-20] MEDS: dexAMETHasone 10 MG in SYRINGE 0 ML IV SCH (08:58)
[2024-10-20] MEDS: CYANOCOBALAMIN (B-12) 500 MCG TABLET PO SCH (08:58)
[2024-10-20] MEDS: CALCIUM 600MG + VIT D 400 IU TAB PO SCH (08:58)
[2024-10-20] MEDS: FLUTICASONE/VILANTEROL 200/25MCG 14 PUFFS/INHALER INH SCH (08:59)
[2024-10-20] MEDS: PANTOprazole 40 MG TAB PO SCH (09:00)
[2024-10-20] MEDS ORDERED: MULTIVITAMIN TAB PO SCH (09:00)
[2024-10-20] MEDS: CEROVITE ADV FORMULA TAB PO SCH (09:00)
[2024-10-20] MEDS: ENOXAPARIN INJ 40 MG/0.4 ML SYR SQ SCH (09:10)
--- NOTE | 2024-10-20 09:22 | Orthopedic Progress Note ---
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 PT/OTweight-bear as tolerated left lower extremity. The Hemovac will be removed today since there has been minimal drainage. The Gerson bandage will be removed today. The Silverlon dressing will remain on the knee until 7 days postop. Pain controlthe patient has hydrocodone written for his inpatient stay. He may continue it upon discharge. If he does not like any of the side effects from hydrocodone, he may return to his as needed tramadol. DVT prophylaxisTED stockings and Coumadin. He was instructed to continue his Lovenox upon returning home. He has an appointment for in 2 days to have his PT/INR drawn. DC planningplan will be for discharge home today with outpatient physical therapy. Admission and Anticipated Discharge Date Admission Date: October 19, 2024 Subjective Patient states he is doing well postop day #1 from his left knee poly exchange. Pain is controlled in the knee. States he is ambulated to the bedside chair and back to the bed. At the time of the visit, he had not participated in physical therapy yet. No complaints today. Physical Exam Constitutional: WD/WN, vitals as above no acute distress (Sitting in bed, comfortable.) Musculoskeletal: Knee: + surgical incision (Left knee dressing is C/D/I) and + surgical drain present (Hemovac present and only drained 5 cc since yesterday.); no deformity, no skin erythema and no ecchymosis Skin: no rashes, warm and dry Neurologic: normal touch/pain/proprioception Psychiatric: A+Ox3, euthymic affect Speech: normal rate/rhythm/volume of speech Results & Data Vital Signs (Past 12 Hours) Vital Signs Temp Pulse Pulse Resp BP BP Pulse Ox 10/20/24 07:47 64 12 130/58 L 94 10/20/24 07:18 63 16 94 10/20/24 03:13 36.8 C 73 16 128/65 94 10/19/24 23:22 36.5 C 80 16 135/68 93 O2 Del Method 10/20/24 07:47 Room Air 10/20/24 07:18 Room Air 10/20/24 03:13 Room Air 10/19/24 23:22 Room Air (1) 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
--- NOTE | 2024-10-20 14:07 | Electrocardiogram Report ---
Test Reason : Blood Pressure : */* mmHG Vent. Rate : 98 BPM Atrial Rate : 98 BPM P-R Int : 158 ms QRS Dur : 98 ms QT Int : 356 ms P-R-T Axes : 45 20 45 degrees QTcB Int : 454 ms Sinus rhythm with Premature atrial complexes Cannot rule out Inferior infarct , age undetermined Abnormal ECG When compared with ECG of 05-Mar-2021 12:34, Premature atrial complexes are now Present Vent. rate has increased by 33 bpm Minimal criteria for Inferior infarct are now Present Confirmed by Quentin Dave ([id number]) on 10/20/2024 2:06:47 PM Referred By: Jason Sow Confirmed By: Quentin Dave
[2024-10-20] MEDS ORDERED: WARFARIN SOD 7.5 MG TAB PO SCH (16:00)
== END 2024-10-20 13:31 | disposition home or self-care (01) | DRG 488 ==
LOC: ASU 05:34 → 3E 05:34 → OBSVTOIN 11:09